=== PATIENT | male | born 1945 | race Caucasian/White ===

== ENCOUNTER → 2017-11-23 | Outpatient (REF) | payer MEDICARE, OTHER ==
[2017-11-23 13:49] LABS: AMORPHOUS SEDIMENT MODERATE (NEGATIVE); APPEARANCE, URINE CLOUDY (CLEAR); BACTERIA, URINE AUTO NEGATIVE (NEGATIVE); BILIRUBIN, URINE AUTO NEGATIVE (NEGATIVE); BLOOD, URINE BLOOD NEGATIVE (NEGATIVE); COLOR, URINE YELLOW (YELLOW); GLUCOSE, URINE (UA) AUTO NEGATIVE (NEGATIVE); KETONE, URINE AUTO NEGATIVE (NEGATIVE); LEUKOCYTE ESTERASE, URINE AUTO NEGATIVE (NEGATIVE); MUCUS, URINE SMALL (NEGATIVE); NITRITE, URINE AUTO NEGATIVE (NEGATIVE); PROTEIN, URINE AUTO NEGATIVE (NEGATIVE); RBC, URINE AUTO 18 /HPF (0-3); SPECIFIC GRAVITY URINE AUTO 1.016 (1.002-1.035); SQUAMOUS EPITHELIAL CELL UR AU 0 /HPF (0-6); UROBILINOGEN, URINE AUTO 0.2 mg/dL (0.0-2.0); WBC, URINE AUTO 1 /HPF (0-3)
== END ==
LOC: M SMT 13:19
DX: R30.0 Dysuria (principal)
CPT/HCPCS: 81001

== ENCOUNTER → 2017-12-03 | Outpatient (REF) | payer MEDICARE, OTHER ==
[2017-12-03 13:24] LABS: AMORPHOUS SEDIMENT SMALL (NEGATIVE); APPEARANCE, URINE HAZY (CLEAR); BACTERIA, URINE AUTO NEGATIVE (NEGATIVE); BILIRUBIN, URINE AUTO NEGATIVE (NEGATIVE); BLOOD, URINE BLOOD NEGATIVE (NEGATIVE); COLOR, URINE YELLOW (YELLOW); GLUCOSE, URINE (UA) AUTO NEGATIVE (NEGATIVE); KETONE, URINE AUTO NEGATIVE (NEGATIVE); LEUKOCYTE ESTERASE, URINE AUTO NEGATIVE (NEGATIVE); MUCUS, URINE SMALL (NEGATIVE); NITRITE, URINE AUTO NEGATIVE (NEGATIVE); PROTEIN, URINE AUTO NEGATIVE (NEGATIVE); RBC, URINE AUTO 0 /HPF (0-3); SQUAMOUS EPITHELIAL CELL UR AU 0 /HPF (0-6); UROBILINOGEN, URINE AUTO 0.2 mg/dL (0.0-2.0); WBC, URINE AUTO 2 /HPF (0-3)
== END ==
LOC: M SMT 13:06
DX: R30.0 Dysuria (principal)
CPT/HCPCS: 81001

== ENCOUNTER 2018-07-09 18:10 | Emergency (ER) | payer MEDICARE, OTHER ==
[~2018-07-09] VITALS: Ht 177.8 cm; Wt 104.5 kg
[2018-07-09] MEDS ORDERED: METAL LOCK LOOP XX ONE (18:36)
[2018-07-09] MEDS ORDERED: EZET10TA PO (18:43)
[2018-07-09] MEDS ORDERED: LANS30CA PO (18:43)
[2018-07-09] MEDS ORDERED: FINA5TAB2 PO (18:43)
[2018-07-09] MEDS ORDERED: AMLO5TAB6 PO (18:43)
[2018-07-09] MEDS ORDERED: ADACEL/BOOSTRIX VACCINE (DIPHTH/PERTUSS/ACELL/TETANUS)0.5ML SYR (90715) IM ONE (18:45)
--- NOTE | 2018-07-09 19:22 | REP ---
Left hand two views : There is no fracture or dislocation. Mineralization and joint spaces are normal. There are no calcifications or foreign bodies. Impression: Negative left hand . Electronically Signed by Job Brewer MD 07/09/2018 07:13 P
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
[2018-07-09 20:11] VITALS: BP 145/93
== END 2018-07-09 20:48 | disposition home or self-care (01) ==
LOC: M ED 18:10 → EDBD 18:10 → M ED 20:48
DX: S16.1XXA Strain of muscle, fascia and tendon at neck level, initial encounter (principal); S61.402A Unspecified open wound of left hand, initial encounter; M47.812 Spondylosis without myelopathy or radiculopathy, cervical region; V43.52XA Car driver injured in collision with other type car in traffic accident, initial encounter; Y92.410 Unspecified street and highway as the place of occurrence of the external cause; Z79.899 Other long term (current) drug therapy

== ENCOUNTER → 2018-07-15 | Outpatient (REF) | payer MEDICARE ==
[~2018-07-15] MED LIST: AMLO5TAB6 PO; EZET10TA PO; FINA5TAB2 PO; LANS30CA PO
[2018-07-15 14:57] LABS: APPEARANCE, URINE CLEAR (CLEAR); BACTERIA, URINE AUTO NEGATIVE (NEGATIVE); BILIRUBIN, URINE AUTO NEGATIVE (NEGATIVE); BLOOD, URINE BLOOD 1+ (NEGATIVE); COLOR, URINE STRAW (YELLOW); GLUCOSE, URINE (UA) AUTO NEGATIVE (NEGATIVE); KETONE, URINE AUTO NEGATIVE (NEGATIVE); LEUKOCYTE ESTERASE, URINE AUTO NEGATIVE (NEGATIVE); NITRITE, URINE AUTO NEGATIVE (NEGATIVE); PROTEIN, URINE AUTO NEGATIVE (NEGATIVE); RBC, URINE AUTO 1 /HPF (0-3); SPECIFIC GRAVITY URINE AUTO 1.006 (1.002-1.035); SQUAMOUS EPITHELIAL CELL UR AU 0 /HPF (0-6); UROBILINOGEN, URINE AUTO 0.2 mg/dL (0.0-2.0); WBC, URINE AUTO 1 /HPF (0-3)
== END ==
LOC: M SMT 13:04
PROVIDERS: ATTEND Nurse Practitioner Family
DX: R31.0 Gross hematuria (principal)

== ENCOUNTER → 2018-08-02 | Outpatient (CLI) | payer MEDICARE, OTHER ==
[2018-08-02 18:24] LABS: BLOOD UREA NITROGEN 12 MG/DL (7-18); CALCIUM LEVEL 9.2 MG/DL (8.8-10.2); CARBON DIOXIDE LEVEL 30 MEQ/L (21-32); CHLORIDE LEVEL 106 MEQ/L (98-107); CREATININE FOR GFR 1.02 MG/DL (0.70-1.30); GLOMERULAR FILTRATION RATE > 60.0 (>42); GLUCOSE, FASTING 95 MG/DL (70-100); POTASSIUM SERUM 4.2 MEQ/L (3.5-5.1); SODIUM LEVEL 140 MEQ/L (136-145)
== END ==
LOC: M SMT 12:44
PROVIDERS: ATTEND Nurse Practitioner Family
DX: R31.0 Gross hematuria (principal)
CPT/HCPCS: 36415; 80048; G0463

== ENCOUNTER → 2018-08-05 | Outpatient (CLI) | payer MEDICARE, OTHER ==
[~2018-08-05] MED LIST changes: +ISOVUE-370 76% 125ML VIAL (Q9967 PER ML) As Ordered ONE
--- NOTE | 2018-08-06 17:09 | REP ---
HISTORY: Gross hematuria. COMPARISON: 12/02/2017 from [facility]. CONTRAST: 100 mL [id number] The lung bases are clear. The precontrast enhanced portion of the examination shows multiple hepatic cysts, status quo. There are bilateral renal peripelvic cysts, status quo and parenchymal cyst in the interpolar region of the right kidney, all unchanged. In the superior pole of the right kidney, there is a nonobstructing 2 mm sized calcification. There are no left nephroliths. There is no evidence of ureterolithiasis or hydroureter. Multiple calcifications are seen in and enlarged prostate gland. These findings are also unchanged. The contrast enhanced portion of the examination shows no evidence of an abnormal enhancing hepatic lesion. The gallbladder, spleen, pancreas, adrenal glands and kidneys are unchanged. The bowel loops and their mesenteries are unchanged. There is descending colon diverticulosis. There is no free fluid or free air. The abdominal aorta and periaortic regions are unchanged and again seen to be within normal limits. CT PELVIS: There is no free fluid or free air. There is no pelvic sidewall adenopathy. Bone window technique throughout the examinations shows chronic spinal degenerative changes and sacroiliac joint degenerative changes, status quo. IMPRESSION: 1. Stable hepatic and renal cysts. 2. Tiny nonobstructing calculus in the inferior pole region of the right kidney, which is unchanged from an older CT scan of 07/18/2017. 3. Prostatomegaly with heavy corpora amylacea. Consider urological consultation. 4. Diverticulosis as described above. 5. Other findings as described above. Electronically Signed by Vel Rodriguez DO 08/09/2018 02:33 P
== END ==
LOC: M RAD 16:31
PROVIDERS: ATTEND Nurse Practitioner Family
DX: R31.0 Gross hematuria (principal); N28.1 Cyst of kidney, acquired; K76.89 Other specified diseases of liver; N20.0 Calculus of kidney; K57.30 Diverticulosis of large intestine without perforation or abscess without bleeding; N42.89 Other specified disorders of prostate
CPT/HCPCS: 74178; Q9967

== ENCOUNTER → 2018-11-04 | Outpatient (REF) | payer MEDICARE, OTHER ==
[~2018-11-04] MED LIST changes: +BACT800T5 PO; -EZET10TA PO; +EZET10TA21 PO; -ISOVUE-370 76% 125ML VIAL (Q9967 PER ML) As Ordered ONE; +NO ITAB PO
[2018-11-04 17:32] LABS: APPEARANCE, URINE CLEAR (CLEAR); BACTERIA, URINE AUTO NEGATIVE (NEGATIVE); BILIRUBIN, URINE AUTO NEGATIVE (NEGATIVE); BLOOD, URINE BLOOD 2+ (NEGATIVE); COLOR, URINE YELLOW (YELLOW); GLUCOSE, URINE (UA) AUTO NEGATIVE (NEGATIVE); KETONE, URINE AUTO NEGATIVE (NEGATIVE); LEUKOCYTE ESTERASE, URINE AUTO NEGATIVE (NEGATIVE); MUCUS, URINE SMALL (NEGATIVE); NITRITE, URINE AUTO NEGATIVE (NEGATIVE); PROTEIN, URINE AUTO NEGATIVE (NEGATIVE); RBC, URINE AUTO 27 /HPF (0-3); SPECIFIC GRAVITY URINE AUTO 1.015 (1.002-1.035); SQUAMOUS EPITHELIAL CELL UR AU 0 /HPF (0-6); UROBILINOGEN, URINE AUTO 0.2 mg/dL (0.0-2.0); WBC, URINE AUTO 6 /HPF (0-3)
== END ==
LOC: M SMT 16:51
PROVIDERS: ATTEND Nurse Practitioner Family
DX: R31.0 Gross hematuria (principal)
CPT/HCPCS: 81001; 87086; G0463

== ENCOUNTER → 2018-11-22 | Outpatient (REF) | payer MEDICARE, OTHER ==
[~2018-11-22] MED LIST changes: -BACT800T5 PO; -NO ITAB PO
[2018-11-22 19:35] LABS: APPEARANCE, URINE CLOUDY (CLEAR); BACTERIA, URINE AUTO 1+ (NEGATIVE); BILIRUBIN, URINE AUTO NEGATIVE (NEGATIVE); BLOOD, URINE BLOOD 3+ (NEGATIVE); COLOR, URINE YELLOW (YELLOW); GLUCOSE, URINE (UA) AUTO NEGATIVE (NEGATIVE); KETONE, URINE AUTO TRACE mg/dL (NEGATIVE); LEUKOCYTE ESTERASE, URINE AUTO NEGATIVE (NEGATIVE); NITRITE, URINE AUTO NEGATIVE (NEGATIVE); PROTEIN, URINE AUTO 1+ mg/dL (NEGATIVE); RBC, URINE AUTO TNTC /HPF (0-3); SPECIFIC GRAVITY URINE AUTO 1.012 (1.002-1.035); SQUAMOUS EPITHELIAL CELL UR AU 0 /HPF (0-6); UROBILINOGEN, URINE AUTO 0.2 mg/dL (0.0-2.0); WBC, URINE AUTO 1 /HPF (0-3)
== END ==
LOC: M SMT 17:15
PROVIDERS: ATTEND Nurse Practitioner Family
DX: R31.0 Gross hematuria (principal)
CPT/HCPCS: 51798; 81001; 87086; 88108; G0463

== ENCOUNTER → 2018-12-24 | Outpatient (REF) | payer MEDICARE, OTHER ==
[~2018-12-24] MED LIST changes: +BACT800T5 PO; +NO ITAB PO
[2018-12-24 17:51] LABS: APPEARANCE, URINE CLEAR (CLEAR); BACTERIA, URINE AUTO NEGATIVE (NEGATIVE); BILIRUBIN, URINE AUTO NEGATIVE (NEGATIVE); BLOOD, URINE BLOOD 3+ (NEGATIVE); COLOR, URINE YELLOW (YELLOW); GLUCOSE, URINE (UA) AUTO NEGATIVE (NEGATIVE); KETONE, URINE AUTO TRACE mg/dL (NEGATIVE); LEUKOCYTE ESTERASE, URINE AUTO TRACE (NEGATIVE); MUCUS, URINE SMALL (NEGATIVE); NITRITE, URINE AUTO NEGATIVE (NEGATIVE); PROTEIN, URINE AUTO 1+ mg/dL (NEGATIVE); RBC, URINE AUTO 77 /HPF (0-3); SPECIFIC GRAVITY URINE AUTO 1.025 (1.002-1.035); SQUAMOUS EPITHELIAL CELL UR AU 0 /HPF (0-6); UROBILINOGEN, URINE AUTO 0.2 mg/dL (0.0-2.0); WBC, URINE AUTO 3 /HPF (0-3)
== END ==
LOC: M SMT 16:51
PROVIDERS: ATTEND Nurse Practitioner Family
DX: R30.0 Dysuria (principal)

== ENCOUNTER 2019-01-21 05:55 | Day surgery (SDC) | payer MEDICARE, OTHER ==
[~2019-01-21] VITALS: Ht 177.8 cm; Wt 103.9 kg
[2019-01-21] MEDS ORDERED: LIDOCAINE 1% MDV 20ML VIAL SQ PRN (06:00)
[2019-01-21] MEDS ORDERED: LR 1,000 ML IV ONE (06:00)
[2019-01-21] MEDS ORDERED: fentaNYL 100 MCG/2 ML INJECTION (J3010) As Ordered ONE (07:14)
[2019-01-21] MEDS ORDERED: PROPOFOL 200 MG/20 ML VIAL As Ordered ONE (07:14)
[2019-01-21] MEDS ORDERED: MIDAZOLAM INJ 2 MG/2 ML VIAL (J2250) As Ordered ONE (07:14)
[2019-01-21] MEDS ORDERED: LIDOCAINE 2% INJ 100 MG/5 ML SDV (FOR ANES.) As Ordered ONE (07:14)
[2019-01-21] MEDS ORDERED: ONDANSETRON 4MG/2ML VIAL (J2405) As Ordered ONE (07:45)
[2019-01-21] MEDS ORDERED: dexameTHASONE 4 MG/ML 1ML VIAL (J1100) As Ordered ONE (07:45)
[2019-01-21] MEDS ORDERED: oxyCODONE 5MG TAB PO PRN (09:15)
[2019-01-21] MEDS ORDERED: LR 1,000 ML IV SCH (09:15)
[2019-01-21] MEDS ORDERED: fentaNYL 100 MCG/2 ML INJECTION (J3010) IV PRN (09:15)
[2019-01-21] MEDS ORDERED: ONDANSETRON 4MG/2ML VIAL (J2405) IV PRN (09:15)
[2019-01-21] MEDS ORDERED: ACETAMINOPHEN TAB 650MG DOSE (2X325MG) PO PRN (09:15)
[2019-01-21 09:20] VITALS: BP 127/69
--- NOTE | 2019-01-21 20:18 | RO ---
DATE OF PROCEDURE: 01/21/2019 PREPROCEDURE DIAGNOSIS: Bladder stone. POSTPROCEDURE DIAGNOSIS: Bladder stone. OPERATIVE PROCEDURE: Cystoscopy, laser cystolitholapaxy, cauterization of prostatic urethral bleeding. SURGEON: Amaury Brown MD PANTOMIMIST: None. ANESTHESIA: General. OPERATIVE INDICATIONS: This is a 73-year-old male who in office cystoscopy was found to have a large bladder stone. He was brought to the operating room today for treatment. DESCRIPTION OF PROCEDURE: The patient was brought to the operating room and general anesthesia was induced. Prophylactic antibiotics were infused. He was then placed in the dorsal lithotomy position and prepped and draped in the usual sterile fashion. At this point, a resectoscope was inserted into the urethral meatus and advanced to the bladder using visual obturator. Once inside the bladder, the large approximately 3 cm stone was seen. Of note the patient also had mild bleeding from his prostatic urethra. The stone was then fragmented into smaller pieces using a 550 micron laser fiber. All the fragments were then removed using an Veritract evacuator. Once that was done, I cauterized areas of bleeding in the prostatic urethra using a Bugbee. Once satisfied with hemostasis, the resectoscope was removed after the bladder was emptied. This marked the conclusion of the procedure. The patient was taken out of the dorsal lithotomy position, awakened from anesthesia and transferred to the recovery room in stable condition. ESTIMATED BLOOD LOSS: 10 mL. COMPLICATIONS: None. SPECIMENS: Bladder stone fragments. PLAN: The patient will followup in the clinic in a few weeks for postoperative visit. KATE
[2019-01-29 00:06] LABS: CA Hydro Phos 80 % (.); CA Oxalate Dihy 10 % (.); COMMENT Note: (.)
== END 2019-01-21 10:28 | disposition home or self-care (01) ==
LOC: M SDC 05:55
PROVIDERS: ATTEND Urology
DX: N21.0 Calculus in bladder (principal); I10 Essential (primary) hypertension; K21.9 Gastro-esophageal reflux disease without esophagitis; N40.0 Benign prostatic hyperplasia without lower urinary tract symptoms; Z79.899 Other long term (current) drug therapy
CPT/HCPCS: 52214; 52318; 74420; 82360; 88300; C1769; J0690; J1100; J2250; J2405; J3010

== ENCOUNTER → 2019-05-06 | Outpatient (REF) | payer MEDICARE, OTHER ==
[2019-05-27 00:06] LABS: CA Hydro Phos 95 % (.)
== END ==
LOC: M SMT 13:36
PROVIDERS: ATTEND Nurse Practitioner Family
DX: N21.0 Calculus in bladder (principal)
CPT/HCPCS: 82360; G0463

== ENCOUNTER → 2019-05-23 | Outpatient (CLI) | payer MEDICARE, OTHER ==
--- NOTE | 2019-05-23 12:53 | REP ---
RENAL ULTRASOUND: Real-time sonographic evaluation of the kidneys performed. Kidneys are normal in size and echotexture, right kidney measuring 11.1 x 6.6 x 8.0 cm and left kidney 11.1 x 5.9 x 6.4 cm. Right kidney demonstrates no hydronephrosis with a cyst in the mid aspect 3.2 x 3.0 x 3.8 cm. Resistive index 0.65. Left kidney demonstrates multicystic appearance once again throughout the renal pelvis region. Compared to prior CT of 08/05/2018 this appears to represent a cluster of multiple peripelvic cysts. Resistive index left kidney 0.67. Right lobe of the liver incidental note is made of a cystic structure in the right lobe of the liver with internal septations 3.8 x 2.9 x 2.9 cm. IMPRESSION: Cyst mid right kidney. There also appears to be a cluster of peripelvic cysts left kidney without overt hydronephrosis. Electronically Signed by Job Bansal MD 05/23/2019 07:35 P
--- NOTE | 2019-05-23 13:04 | REP ---
BLADDER ULTRASOUND: Real-time sonographic evaluation of the bladder performed. Bladder measures 8.8 x 6.0 x 5.9 cm. Total volume is 203 mL. No definite bladder mass or stone is seen. Postvoid residual is 10 mL which is 5% of the original volume. Ureteral jets are not visualized with Doppler color evaluation. Prostate measures 3.1 x 3.3 x 4.8 cm. IMPRESSION: Suboptimal distension of the bladder with no gross mass or calculus. Postvoid residual 5%. Electronically Signed by Job Bansal MD 05/23/2019 07:35 P
== END ==
LOC: M RAD 10:25
PROVIDERS: ATTEND Nurse Practitioner Family
DX: N20.0 Calculus of kidney (principal)

== ENCOUNTER 2020-10-02 20:36 | Emergency (ER) | payer MEDICARE, OTHER ==
[~2020-10-02] VITALS: Ht 177.8 cm; Wt 107.8 kg
[~2020-10-02 20:36] MED LIST changes: +AMLO1TAB24 PO; -AMLO5TAB6 PO
[2020-10-02] MEDS ORDERED: KETOROLAC 60MG 2ML VIAL IM ONE (23:45)
[2020-10-02] MEDS ORDERED: LIDOCAINE 5% (LIDODERM) PATCH TD ONE (23:45)
[2020-10-02] MEDS ORDERED: methocarbamoL 750 MG TAB PO ONE (23:45)
[2020-10-03 00:37] VITALS: BP 137/87
--- NOTE | 2020-10-03 01:09 | REPVR ---
PROCEDURE INFORMATION: Exam: CT Lumbar Spine Without Contrast Exam date and time: 10/02/2020 11:44 PM Age: 75 years old Clinical indication: Low back pain; Additional info: Low back pain x weeks, severe last couple days TECHNIQUE: Imaging protocol: Computed tomography images of the lumbar spine without contrast. Radiation optimization: All CT scans at this facility use at least one of these dose optimization techniques: automated exposure control; mA and/or kV adjustment per patient size (includes targeted exams where dose is matched to clinical indication); or iterative reconstruction. COMPARISON: No relevant prior studies available. FINDINGS: Vertebrae: Moderate S-shaped lower lumbar scoliosis with right lateral L3-L4 1 cm subluxation. Discs/Spinal canal/Neural foramina: Degenerative disc and joint disease with moderate spinal and multilevel moderate to severe foraminal stenosis. Kidneys and ureters: Benign density 4 cm right renal cyst. Soft tissues: Unremarkable. IMPRESSION: No acute abnormality. Degenerative changes described above. COMMENTS: Consistent with the [employer]'s Incidental Findings Committee white paper (J Am Rivera Radiol 2018): Any incidental renal lesion less than 1 cm or classified as too small to characterize, or any incidental cystic renal lesion characterized as simple-appearing, is likely benign. No follow-up imaging is recommended for these lesions per consensus recommendations based on imaging criteria. Electronically signed by: Cuco Pearson On 10/03/2020 01:09:16 AM
[2020-10-03] MEDS ORDERED: ASPE4PAD TOP (01:31)
[2020-10-03] MEDS ORDERED: METH-1165 PO (01:31)
[2020-10-03] MEDS ORDERED: methocarbamoL 750 MG TAB PO ONE (01:35)
[2020-10-03] MEDS ORDERED: **NOTE PATIENT COMMENT** MISC XX SCH (21:00)
== END 2020-10-03 01:52 | disposition home or self-care (01) ==
LOC: M ED 20:36
DX: M99.63 Osseous and subluxation stenosis of intervertebral foramina of lumbar region (principal); I10 Essential (primary) hypertension; E78.5 Hyperlipidemia, unspecified; M19.90 Unspecified osteoarthritis, unspecified site; Z79.899 Other long term (current) drug therapy
CPT/HCPCS: 72131; 96372; 99283; J1885

== ENCOUNTER → 2020-11-13 | Outpatient (CLI) | payer MEDICARE, OTHER ==
[~2020-11-13] MED LIST changes: +ASPE4PAD TOP; +METH-1165 PO
--- NOTE | 2020-11-13 16:21 | REP ---
INDICATION: BLADDER STONES COMPARISON: 05/23/2019 TECHNIQUE: Real time schreiber scale ultrasound examination using curved array transducer. FINDINGS: Right kidney measures 11.2 x 6.2 x 6.9 cm and includes 3.7 x 3.8 x 2.9 cm peripelvic midpole cyst. No hydronephrosis, nephrolithiasis or renal mass lesion. Left kidney measures 10.5 x 5.8 x 5.5 cm and includes 4.0 x 3.4 x 2.4 cm peripelvic cyst and 3.6 x 2.0 x 3.0 cm lower pole septated cyst. No hydronephrosis, nephrolithiasis, or renal mass lesion. IMPRESSION: 1. Bilateral renal cysts. <Electronically signed by Ruben Hastings > 11/13/20 [id number]
--- NOTE | 2020-11-13 16:25 | REP ---
INDICATION: BLADDER STONES COMPARISON: None TECHNIQUE: Real time B-mode ultrasound examination using curved array transducer. FINDINGS: Bladder demonstrates mild chronic appearing wall thickening to 7 mm. No mass lesion or bladder stones identified. Prostate gland is enlarged and heterogeneous with mass effect on the base of the bladder and measures 6.5 x 6.2 x 6.6 cm. Prevoid bladder measures 6.1 x 3.6 x 2.7 cm (39 cc). Postvoid bladder measures 2 3.9 x 1.7 x 1.4 cm (6 cc). Postvoid residual: 16% IMPRESSION: 1. Presumed chronic bladder wall thickening. 2. Incomplete filling with abnormally elevated postvoid residual volume warrants clinical correlation. 3. Heterogeneous enlarged prostate gland with mass effect on the base of the bladder. <Electronically signed by Ruben Hastings > 11/13/20 [id number]
== END ==
LOC: M RAD 15:26
PROVIDERS: ATTEND Nurse Practitioner Family
DX: N21.0 Calculus in bladder (principal)

== ENCOUNTER → 2020-12-31 | Outpatient (CLI) | payer MEDICARE, OTHER ==
--- NOTE | 2020-12-31 13:23 | REP ---
INDICATION: BLADDER WALL THICKENING. COMPARISON: 11/13/2020 TECHNIQUE: Real-time sonographic evaluation of the urinary bladder with transvesical technique FINDINGS: The urinary bladder is less than optimally distended. The maximal wall thickness is 6 mm. The pre void urinary bladder volume calculation is 112.3 cc and the postvoid urinary bladder volume calculation is 4.8 cc. This renders a 4.3% postvoid residual. Doppler of the urinary bladder at the UV junction failed to identify uro jet phenomena on either side. IMPRESSION: As above <Electronically signed by Vel Rodriguez > 12/31/20 [id number]
== END ==
LOC: M RAD 12:40
PROVIDERS: ATTEND Nurse Practitioner Family
DX: N32.89 Other specified disorders of bladder (principal)

== ENCOUNTER → 2021-01-16 | Outpatient (REF) | payer MEDICARE, OTHER ==
[2021-01-16 13:43] LABS: AMORPHOUS SEDIMENT SMALL (NEGATIVE); APPEARANCE, URINE CLOUDY (CLEAR); BACTERIA, URINE AUTO NEGATIVE (NEGATIVE); BILIRUBIN, URINE AUTO NEGATIVE (NEGATIVE); BLOOD, URINE BLOOD NEGATIVE (NEGATIVE); COLOR, URINE YELLOW (YELLOW); GLUCOSE, URINE (UA) AUTO NEGATIVE (NEGATIVE); KETONE, URINE AUTO NEGATIVE (NEGATIVE); LEUKOCYTE ESTERASE, URINE AUTO NEGATIVE (NEGATIVE); MUCUS, URINE SMALL (NEGATIVE); NITRITE, URINE AUTO NEGATIVE (NEGATIVE); PROTEIN, URINE AUTO NEGATIVE (NEGATIVE); RBC, URINE AUTO 1 /HPF (0-3); SPECIFIC GRAVITY URINE AUTO 1.014 (1.002-1.035); SQUAMOUS EPITHELIAL CELL UR AU 0 /HPF (0-6); UROBILINOGEN, URINE AUTO 0.2 mg/dL (0.0-2.0); WBC, URINE AUTO 2 /HPF (0-3)
== END ==
LOC: M SMT 13:01
PROVIDERS: ATTEND Urology
DX: Z87.448 Personal history of other diseases of urinary system (principal)
CPT/HCPCS: 81001; G0463

== ENCOUNTER → 2021-10-01 | Outpatient (REF) | payer MEDICARE, OTHER ==
[2021-10-01 18:19] LABS: APPEARANCE, URINE HAZY (CLEAR); BACTERIA, URINE AUTO NEGATIVE (NEGATIVE); BILIRUBIN, URINE AUTO NEGATIVE (NEGATIVE); BLOOD, URINE BLOOD NEGATIVE (NEGATIVE); CALCIUM OXALATE CRYSTALS SMALL; COLOR, URINE YELLOW (YELLOW); GLUCOSE, URINE (UA) AUTO NEGATIVE (NEGATIVE); KETONE, URINE AUTO NEGATIVE (NEGATIVE); LEUKOCYTE ESTERASE, URINE AUTO NEGATIVE (NEGATIVE); MUCUS, URINE SMALL (NEGATIVE); NITRITE, URINE AUTO NEGATIVE (NEGATIVE); PROTEIN, URINE AUTO 1+ mg/dL (NEGATIVE); RBC, URINE AUTO 20 /HPF (0-3); SPECIFIC GRAVITY URINE AUTO 1.023 (1.002-1.035); SQUAMOUS EPITHELIAL CELL UR AU 1 /HPF (0-6); UROBILINOGEN, URINE AUTO 0.2 mg/dL (0.0-2.0); WBC, URINE AUTO 2 /HPF (0-3)
== END ==
LOC: M SMT 16:58
PROVIDERS: ATTEND Urology
DX: R10.2 Pelvic and perineal pain (principal)

== ENCOUNTER → 2021-10-08 | Outpatient (CLI) | payer MEDICARE, OTHER | LOC: M RAD 08:09 | PROVIDERS: ATTEND Urology | DX: N20.0 Calculus of kidney (principal); K57.30 Diverticulosis of large intestine without perforation or abscess without bleeding ==

== ENCOUNTER → 2021-12-04 | Outpatient (CLI) | payer MEDICARE, OTHER ==
[~2021-12-04] MED LIST changes: +CYAN100050 PO; +TAMS1CAP17 PO; +VITAFUSION PO
== END ==
LOC: M LABSMTC 09:58
PROVIDERS: ATTEND Anesthesiology
DX: Z01.818 Encounter for other preprocedural examination (principal); Z11.52 Encounter for screening for COVID-19

== ENCOUNTER 2021-12-09 06:04 | Day surgery (SDC) | payer MEDICARE, OTHER ==
[~2021-12-09] VITALS: Ht 177.8 cm; Wt 106.6 kg
[~2021-12-09 06:04] MED LIST changes: +CIPROFLOXACIN 400 MG in IV 1 EA IV ONE
[2021-12-09] MEDS ORDERED: LR 1,000 ML IV SCH (06:40)
[2021-12-09] MEDS ORDERED: MIRA3350 PO (06:41)
[2021-12-09] MEDS ORDERED: ISOVUE-300 61% 50ML VIAL As Ordered ONE (07:14)
[2021-12-09] MEDS ORDERED: propofoL 200 MG/20 ML VIAL As Ordered ONE (07:15)
[2021-12-09] MEDS ORDERED: MIDAZOLAM INJ 2MG/2ML VIAL (J2250 PER 1MG) As Ordered ONE (07:15)
[2021-12-09] MEDS ORDERED: LIDOCAINE 2% 100MG/5ML SDV (FOR ANES.) As Ordered ONE (07:15)
[2021-12-09] MEDS ORDERED: fentaNYL 100 MCG/2 ML INJECTION As Ordered ONE (07:16)
[2021-12-09] MEDS ORDERED: dexameTHASONE 4 MG/ML 1ML VIAL (J1100 PER 1MG) As Ordered ONE (07:44)
[2021-12-09] MEDS ORDERED: ONDANSETRON 4MG 2ML VIAL As Ordered ONE (07:44)
[2021-12-09] MEDS ORDERED: PYRI1TAB5 PO (08:15)
[2021-12-09] MEDS ORDERED: NS 1,000 ML IV SCH (08:15)
[2021-12-09] MEDS ORDERED: BACT800T5 PO (08:15)
[2021-12-09] MEDS ORDERED: ONDANSETRON 4MG 2ML VIAL IV PRN (08:15)
[2021-12-09] MEDS ORDERED: MEPERIDINE INJ 25 MG/ML VIAL (J2175) IV PRN (08:15)
[2021-12-09] MEDS ORDERED: oxyCODONE 5MG TAB PO PRN (08:15)
[2021-12-09] MEDS ORDERED: fentaNYL 100 MCG/2 ML INJECTION IV PRN (08:15)
[2021-12-09 09:16] VITALS: BP 135/66
[2021-12-13 17:08] LABS: CA Hydro Phos 70 % (.); CA Oxalate Dihy 30 % (.); Size 6x4 mm (.)
== END 2021-12-09 09:21 | disposition home or self-care (01) ==
LOC: M SDC 06:04
PROVIDERS: ATTEND Urology
DX: N21.0 Calculus in bladder (principal); N40.0 Benign prostatic hyperplasia without lower urinary tract symptoms
CPT/HCPCS: 52317; 82365; J0744; J1100; J2250; J2405; J3010

== ENCOUNTER → 2022-12-15 | Outpatient (CLI) | payer MEDICARE, OTHER ==
[~2022-12-15] MED LIST changes: -CIPROFLOXACIN 400 MG in IV 1 EA IV ONE; +CYAN-1 PO; -CYAN100050 PO; +MIRA3350 PO; +PYRI1TAB5 PO
[2022-12-15 14:25] LABS: BASO % 0.3 % (0.0-1.0); EOS # 0.1 10^3/uL (0.0-0.5); HEMATOCRIT 43.9 % (42.0-52.0); HEMOGLOBIN 15.2 g/dl (13.5-17.5); LYMPH # 1.9 10^3/uL (1.5-5.0); LYMPH % 20.2 % (24.0-44.0); MEAN CORPUSCULAR HEMOGLOBIN 33.9 pg (27.0-33.0); MEAN CORPUSCULAR HGB CONC 34.6 g/dl (32.0-36.5); MONO # 0.7 10^3/uL (0.0-0.8); MONO % 6.8 % (2.0-8.0); NEUTROPHILS # 6.8 10^3/uL (1.5-8.5); NEUTROPHILS % 71.2 % (36.0-66.0); PLATELET COUNT, AUTOMATED 217 10^3/uL (150-450); RED BLOOD COUNT 4.48 10^6/uL (4.30-6.10); WHITE BLOOD COUNT 9.6 10^3/uL (4.0-10.0)
[2022-12-15 14:39] LABS: ALBUMIN 3.6 G/DL (3.2-5.2); ALKALINE PHOSPHATASE 53 U/L (46-116); ALT/SGPT 27 U/L (7.0-40); AST/SGOT 15 U/L (<34); BLOOD UREA NITROGEN 11 MG/DL (9-23); C REACTIVE PROTEIN QUANTITATIV < 0.40 MG/DL (<1.0); CALCIUM LEVEL 9.3 MG/DL (8.3-10.6); CARBON DIOXIDE LEVEL 26 MMOL/L (20-31); CHLORIDE LEVEL 108 MMOL/L (98-107); CREATININE FOR GFR 0.87 MG/DL (0.70-1.30); GLOMERULAR FILTRATION RATE > 60.0 (>42); GLUCOSE, FASTING 93 MG/DL (74-106); SODIUM LEVEL 143 MMOL/L (136-145); TOTAL PROTEIN 6.4 G/DL (5.7-8.2)
[2022-12-15 14:52] LABS: ERYTHROCYTE SEDIMENTATION RATE 23 mm/hr (0-20)
== END ==
LOC: M RAD 13:04
PROVIDERS: ATTEND Physician Assistant
DX: Z47.89 Encounter for other orthopedic aftercare (principal); Z79.899 Other long term (current) drug therapy; M79.605 Pain in left leg

== ENCOUNTER → 2023-07-02 | Outpatient (CLI) | payer MEDICARE, OTHER | LOC: M RAD 13:16 | PROVIDERS: ATTEND Urology | DX: Z87.448 Personal history of other diseases of urinary system (principal); R97.20 Elevated prostate specific antigen [PSA] ==

== ENCOUNTER 2023-10-08 05:57 | Day surgery (SDC) | payer MEDICARE, OTHER ==
[~2023-10-08] VITALS: Ht 177.8 cm; Wt 102.3 kg
[2023-10-08] MEDS ORDERED: LIDOCAINE 2% 100MG/5ML SDV (FOR ANES.) As Ordered ONE (06:56)
[2023-10-08] MEDS ORDERED: ONDANSETRON 4MG 2ML VIAL As Ordered ONE (06:56)
[2023-10-08] MEDS ORDERED: propofoL 200 MG/20 ML VIAL As Ordered ONE (06:56)
[2023-10-08] MEDS ORDERED: MIDAZOLAM INJ 2MG/2ML VIAL As Ordered ONE (06:56)
[2023-10-08] MEDS ORDERED: fentaNYL 100 MCG/2 ML INJECTION As Ordered ONE (06:57)
[2023-10-08] MEDS: LR 1,000 ML IV SCH (07:14)
[2023-10-08] MEDS: ceFAZolin SOD 2 GM in IV 1 EA IV ONE (07:39)
[2023-10-08] MEDS ORDERED: ACETAMINOPHEN 1000MG 100ML IV BAG As Ordered ONE (07:48)
[2023-10-08] MEDS: ISOVUE-300 61% 100ML VIAL As Ordered ONE (08:44)
[2023-10-08] MEDS ORDERED: LR 1,000 ML IV SCH (08:50)
[2023-10-08] MEDS ORDERED: fentaNYL 100 MCG/2 ML INJECTION IV PRN (08:50)
[2023-10-08] MEDS ORDERED: oxyCODONE 5MG TAB PO PRN (08:50)
[2023-10-08] MEDS ORDERED: ONDANSETRON 4MG 2ML VIAL IV PRN (08:50)
[2023-10-08] MEDS ORDERED: OXYB5TAB14 PO (08:59)
[2023-10-08] MEDS ORDERED: MACR100C43 PO (08:59)
[2023-10-08] MEDS ORDERED: PYRI1TAB5 PO (08:59)
[2023-10-08 10:08] VITALS: BP 130/65; TEMP 97.1; O2SAT 96
[2023-10-19 01:06] LABS: CA Hydro Phos 80 % (.); CA Oxalate Dihy 20 % (.); COMPONENT 1 Brown (.); COMPONENT 2 4x4 mm (.)
== END 2023-10-08 10:30 | disposition home or self-care (01) ==
LOC: M SDC 05:57
PROVIDERS: ATTEND Urology
DX: N40.0 Benign prostatic hyperplasia without lower urinary tract symptoms (principal); N21.0 Calculus in bladder; G47.30 Sleep apnea, unspecified; I10 Essential (primary) hypertension; E78.00 Pure hypercholesterolemia, unspecified; K21.9 Gastro-esophageal reflux disease without esophagitis; Z79.899 Other long term (current) drug therapy
CPT/HCPCS: 52317; 52601; 82365; 88305; C1769; J0131; J0690; J1100; J2250; J2405; J3010; Q9967

== ENCOUNTER → 2024-09-14 | Outpatient (REF) | payer MEDICARE, OTHER ==
[~2024-09-14] MED LIST changes: +MACR100C43 PO; +OXYB5TAB14 PO
[2024-09-14 15:42] LABS: APPEARANCE, URINE CLEAR (CLEAR); BACTERIA, URINE AUTO NEGATIVE (NEGATIVE); BILIRUBIN, URINE AUTO NEGATIVE (NEGATIVE); BLOOD, URINE BLOOD NEGATIVE (NEGATIVE); COLOR, URINE YELLOW (YELLOW); GLUCOSE, URINE (UA) AUTO NEGATIVE (NEGATIVE); KETONE, URINE AUTO NEGATIVE (NEGATIVE); LEUKOCYTE ESTERASE, URINE AUTO NEGATIVE (NEGATIVE); MUCUS, URINE SMALL (NEGATIVE); NITRITE, URINE AUTO NEGATIVE (NEGATIVE); PROTEIN, URINE AUTO NEGATIVE (NEGATIVE); RBC, URINE AUTO 2 /HPF (0-3); SPECIFIC GRAVITY URINE AUTO 1.012 (1.002-1.035); SQUAMOUS EPITHELIAL CELL UR AU 0 /HPF (0-6); UROBILINOGEN, URINE AUTO 0.2 mg/dL (0.0-2.0); WBC, URINE AUTO 7 /HPF (0-3)
== END ==
LOC: M SMT 15:10
PROVIDERS: ATTEND Urology
DX: R39.89 Other symptoms and signs involving the genitourinary system (principal)